=== PATIENT | male | born 1990 | race Hispanic/Latino ===

== ENCOUNTER 2025-03-15 05:43 | Day surgery (SDC) | payer BC ==
[2025-03-10 09:57] VITALS: BMI 20.5
[2025-03-15] MEDS ORDERED: Bupivacaine HCl 0.5%/Epinephrine 1:200,000/PF 30 ml Vial ONE (06:13)
[2025-03-15] MEDS ORDERED: PROPOFOL 40 ML ONE (06:28)
[2025-03-15] MEDS ORDERED: CEFAZOLIN 2 GM VIAL ONE (06:52)
== END 2025-03-15 09:10 | disposition home or self-care (01) ==
LOC: CSHSDC 05:43
PROVIDERS: ATTEND Surgery
PROC: 05HM03Z Insertion of Infusion Device into Right Internal Jugular Vein, Open Approach (ICD-10-PCS; principal; 2025-03-15)
DX: C62.91 Malignant neoplasm of right testis, unspecified whether descended or undescended (principal)
CPT/HCPCS: 71045; C1788; J1642; J2371; J2704